=== PATIENT | female | born 1940 | race Caucasian/White ===

== ENCOUNTER 2018-07-18 05:33 | Inpatient (IN) | payer MEDICARE, BC, SELFPAY ==
[2018-07-18] VITALS (25 sets, daily range): BP systolic 104–159; BP diastolic 51–109; PULSE 96–193; RESP 16–30; TEMP 35.8–37.8; O2SAT 71–98; BMI 28.3; BMI 33.2
--- NOTE | 2018-07-18 05:39 | ED.RN ---
DR GLEASON TO THE ROOM. PT PLACED ON NRB. CONTINUES TO BLEED.
[2018-07-18 06:08] LABS: Absolute Lymphocyte Count 2.31 X10^3/ul (0.83-4.51); Absolute Neutrophil Count 7.9 X10^3/uL (2.0-7.7); Basophil# 0.01 X10^3/uL; Basophil% 0.1 % (0-1); Eosinophil# 0.09 X10^3/uL; Eosinophils% 0.8 % (0-5); Hematocrit 35.6 % (37-47); Hemoglobin 11.7 g/dl (12.0-15.0); Lymphocyte # 2.31 X10^3/ul (4.0); Lymphocyte % 20.8 % (19-41); Mean Corp Hgb Conc 32.9 g/gl (32-36); Mean Corpuscular Hgb 29.8 pg (27.0-32.0); Mean Corpuscular Volume 90.8 fL (81-99); Mean Platelet Vol. 11.2 fl (6.2-12.0); Monocyte# 0.73 X10^3/uL; Monocyte% 6.6 % (0-10); Neutrophil # 7.93 X10^3/uL (2.7-7.7); Neutrophil % 71.6 % (47-70); Platelet Count 190 K/mm3 (150-450); RBC Distribution Width CV 13.8 % (11.6-14.6); RBC Distribution Width SD 45.6 fl (35.1-43.9); Red Blood Count 3.92 M/mm3 (4.2-5.4); White Blood Count 11.1 K/mm3 (4.4-11.0)
--- NOTE | 2018-07-18 06:08 | ED.RN ---
RESPIRATORY THERAPY IN THE ROOM. PULSE OX 91
--- NOTE | 2018-07-18 06:08 | ED.RN ---
PT ON 50% 12L O2 VIA FACE TENT
[2018-07-18 06:11] LABS: POSITIVE COUNT NO; POSITIVE DIFFERENTIAL NO; POSITIVE MORPHOLOGY NO
[2018-07-18 06:18] LABS: International Normalized Ratio 1.2; Prothrombin Time (Protime)PT. 15.4 SECONDS (11.7-14.9)
--- NOTE | 2018-07-18 06:21 | ED.RN ---
PT SUCTIONED NEEDED. PT SPITTING OUT BLOOD CLOTS. CONTINUES TO BLEED. DR GLEASON PLACED POSTERIOR RAPID RHINO IN RIGHT NARES. PT TOLERATED WELL. PULSE OX RANGING FROM 73-91%. CONTINUE TO SUCTION NEEDED. BLEEDING HAS SLOWED. PT REPORTS IMPROVEMENT. WILL CONTINUE TO MONITOR.
[2018-07-18 06:26] LABS: Anion Gap 11 (5-15); BUN 29 mg/dL (7-18); Calcium,Total 8.5 mg/dL (8.5-10.1); Chloride 106 mmol/L (98-107); Creatinine, Serum 1.21 mg/dL (0.55-1.02); EST Glomerular Filtration Rate 46 mL/min (>60); Est Glom Filt Rate - Afr Amer 55 mL/min (>60); Estimated Creatinine Clearance 33.09 ml/min; Glucose 151 mg/dL (74-106); Potassium 3.2 mmol/L (3.5-5.1); Sodium Level 144 mmol/L (136-145)
--- NOTE | 2018-07-18 07:09 | ED.VISSUMM ---
- ER Visit Summary Date of Service: 07/18/18 Chief Complaint: Nosebleed History of Present Illness: The patient is a 77 F presenting with nosebleed. This started 2 hours prior to arrival. Patient had severe bleeding from both sides of her nose. Her family states she passed out at home. She is on Eliquis for history of A. fib. On arrival she is bleeding diffusely and hypoxic. Physical Examination: Blood pressure 144/97, temperature 96, heart rate 109, respiratory rate 22. Pulse ox initially in the 70s on room air, 95% on 12 L Alert moderate distress HEENT exam: pale conjunctivae, blood bilateral nares, and posterior pharynx. Neck is supple. Lungs are clear and equal bilaterally. Heart is irregularly irregular Abdomen is soft nontender nondistended. Extremities are unremarkable. Skin is warm and dry. No focal neurologic deficit. Remainder of exam is unremarkable. Emergency Department Course and Treatment: Patient was put on nonrebreather mask. Direct pressure was applied to her nose. Right-sided posterior Rhino Rocket was placed. She was put on a 50% face tent. The bleeding is controlled. Chest x-ray was obtained which showed no acute process. CBC shows white count 11.1, hemoglobin 11.7. Chemistries show potassium 3.2. INR 1.2. Patient is hemodynamically stable. Discussed with the hospitalist for admission. Disposition: Admission Impression: Posterior epistaxis, syncope This note was generated with [employer] dictation software. It may contain incorrect words, spelling, and punctuation that were not noted in review of the chart prior to signing ED Disposition - Plan for ED Patient: Chief Complaint: Nosebleed Referrals: [facility] Doctor,Out of [Primary Care Provider] -
--- NOTE | 2018-07-18 07:47 | PCM.HP.STD ---
Problem List (1) Epistaxis Status: Acute (2) Acute respiratory failure with hypoxia Status: Acute (3) Aspiration pneumonia Status: Acute History of Present Illness Date of Admission: 07/18/18 Chief Complaint: epistaxis The patient is a 77 year old F who was in her normal state of health today up until 3:45 AM patient developed archie epistaxis. Patient was coughing up blood but blood was also running in inferiorly through her nares. Patient presented to the emergency room and they eventually got the bleed tamponaded with a Rhino Rocket. Patient denies any antecedent trauma or ear of her nose preceding this. Patient has never had a significant epistaxis like this before. Patient also presented hypoxic with pulse ox of 71% on room air. Patient was put on a nasal tent mask and is currently 97%. [] Past Medical History Medical History: Medical History (Last Updated 07/18/18 @ 07:50 by Bob Suresh DO) Atrial fibrillation I48.91 Dementia F03.90 Allergies No Known Allergies Allergy (Verified 07/18/18 06:06) Home Medications: Ambulatory Orders Medication Instructions Recorded Apixaban [Eliquis] 5 mg PO BID 07/18/18 Chlorthalidone 25 mg PO DAILY 07/18/18 Donepezil HCl [Aricept] 5 mg PO QHS 07/18/18 Metoprolol(XL)Succ [Toprol Xl 25 mg PO DAILY 07/18/18 (Beta Ronni)] Lives: Spouse/ Significant Other Smoking Status: Never smoker Tobacco Use: Non-smoker Alcohol: Occasional Drugs: None - *Family History Maternal History Items: - - No heart disease Review of Systems Constitutional: Denies: Anorexia, Chills, Fever Eyes: Denies: Blurred vision, Double vision HEENT: Reports: Nasal bleeding. Denies: Difficulty Hearing Cardiovascular: Denies: Chest Pain, Palpitations Respiratory: Reports: Hemoptysis, Shortness of breath upon exertion. Denies: Cough, Shortness of breath at rest, Sputum production Gastrointestinal: Denies: Abdominal Pain, Nausea, Vomiting Genitourinary: Denies: Dysuria, Hematuria Musculoskeletal: Denies: Joint Pain, Joint Tenderness Skin: Denies: Rash, Wounds Neurological: Denies: Numbness, Tingling, Focal weakness Hematologic/ Lymphatic: Denies: Easy Bruising, Easy Bleeding, Hx of blood clot Comment: All review of systems are negative except as mentioned in the history of present illness and the other review of systems. VTE Information - Inpt Only VTE Present on Admission: No VTE Mechan Device Prophylaxis: SCD's VTE Pharm Prophylaxis ordered?: No Reason prophylaxis not ordered:: Medical Contraindication Patient Problems: Active and Suspected Problems (Last Updated 07/18/18 @ 07:50 by Bob Suresh DO) Epistaxis (Acute) Acute respiratory failure with hypoxia (Acute) Aspiration pneumonia (Acute) Objective: Patient has a nasal contents. The patient is a nasal packing in her right nares. - Physical Exam General: Alert, Cooperative, No apparent distress HEENT: Atraumatic, Normocephalic Neck: No Nodes, Thyroid Normal Size and Texture Lungs: Normal air movement, - - Right lower lobe crackles Cardiovascular: Regular rate, Regular Rhythm, Normal S1, Normal S2, No murmurs Abdomen: Bowel Sounds Present, Soft, Non Tender, Non-Distended, No Hepato-splenomegaly Extremities: No edema, No Calf Tenderness Skin: No rashes, No breakdown Musculoskeletal: No Tenderness to Palpation of Joints or Extremities, No Muscle Wasting Lymphatic: No Cervical, Supraclavicular, or Inguinal Adenopathy, Cervical Adenopathy Neurological: Sensory exam intact to light touch and pain, Coordination normal Psych/Mental Status: Normal Affect, Appropriate Vital Signs Temp Pulse Resp BP Pulse Ox 35.8 C L 102 H 26 H 118/86 H 98 07/18/18 05:34 07/18/18 07:27 07/18/18 07:27 07/18/18 07:27 07/18/18 07:27 Oxygen Flow Rate (L/min) 12 Oxygen Delivery Method Room Air Weight: 74.843 kg Body Mass Index (BMI) 28.3 Laboratory Tests Past 24 Hrs 07/18/18 07/18/18 07/18/18 05:55 05:55 05:55 WBC 11.1 H RBC 3.92 L Hgb 11.7 L Hct 35.6 L MCV 90.8 MCH 29.8 MCHC 32.9 RDW 13.8 RDW Differential 45.6 H Plt Count 190 MPV 11.2 Immature Gran % (Auto) 0.100 Neut % (Auto) 71.6 H Lymph % (Auto) 20.8 [place] % (Auto) 6.6 Eos % (Auto) 0.8 Baso % (Auto) 0.1 Absolute Neuts (auto) 7.9 H Absolute Lymphs (auto) 2.31 Total Counted Not Reportable PT 15.4 H INR 1.2 APTT 29.0 Sodium 144 Potassium 3.2 L Chloride 106 Carbon Dioxide 27.0 Anion Gap 11 BUN 29 H Creatinine 1.21 H Estim Creat Clear Calc 33.09 Est GFR (MDRD) Af Amer 55 L Est GFR (MDRD) Non-Af 46 L BUN/Creatinine Ratio 24.0 H Glucose 151 H Calcium 8.5 Clinical Impression(s) from Imaging Studies Chest X-Ray 07/18/18 05:51 IMPRESSION: Component of COPD. No pulmonary edema, congestive heart failure or confluent pneumonia. Other nonacute findings as outlined above. Electronically Signed: Yoselyn Horton MD at 6:44 EDT , Service support , Assessment/Plan All Active Problems (Last Updated 07/18/18 @ 07:50 by Bob Suresh DO) Epistaxis (Acute) Acute respiratory failure with hypoxia (Acute) Aspiration pneumonia (Acute) 1. 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 Patient has been on Eliquis for about a urinalysis not medication. Patient denies any recent trauma. Currently tamponaded with a Rhino Rocket in the right nares Plan is to keep that Rhino Rocket in remove on the . If no further bleeding then then the Rhino Rocket can be removed and Eliquis could be restarted in about a week's time. Given the amount of suspected blood loss patient had will follow up her hemoglobin this afternoon. 2. Acute hypoxic respiratory failure Secondary to the epistaxis but also aspiration pneumonia Wean oxygen as tolerated keep sats greater than 90% Pulmonary toilet 3. Aspiration pneumonia Secondary to epistaxis Given what appears to be on a chest x-ray to be aspiration pneumonia, I do not feel that it is actually heart failure, patient will be put on empiric Unasyn Pulmonary toilet 4. Atrial fibrillation Eliquis will be held as above Continue with metoprolol 5. DVT prophylaxis with SCDs. Chemical prophylaxis is contraindicated in light of the acute hemorrhage. 6. Advanced care planning: Discussed with the patient and the . Patient was rather noncommittal in regards to his care planning, therefore she is full CODE STATUS. I did encourage she and her to discuss these issues further. Code Visit Inpatient E&M: 64001 Init Hosp L3
[2018-07-18] MEDS: Metoprolol(XL)Succ 25 MG Tablet PO (10:30)
[2018-07-18] MEDS: Chlorthalidone 50 MG Tablet 25 MG PO (10:31)
[2018-07-18] MEDS: Ipratropium/Albuterol Sulfate 3 ML AMPUL.NEB INHALATION ×3 (11:28→19:43)
[2018-07-18 13:26] LABS: Hematocrit 32.5 % (37-47); Mean Corp Hgb Conc 33.8 g/gl (32-36); Mean Corpuscular Hgb 30.6 pg (27.0-32.0); Mean Corpuscular Volume 90.3 fL (81-99); Mean Platelet Vol. 11.2 fl (6.2-12.0); Platelet Count 160 K/mm3 (150-450); RBC Distribution Width CV 13.7 % (11.6-14.6); RBC Distribution Width SD 43.9 fl (35.1-43.9); White Blood Count 10.2 K/mm3 (4.4-11.0)
[2018-07-18 13:27] LABS: Scan Indicated on CBC? Y/N NO
[2018-07-18] MEDS: 0.9% Normal Saline 1,000 ML 150 ML IV (14:32)
[2018-07-18] MEDS: 0.9% NaCl Peripheral Flush Adult/Peds IV ×3 (14:32→23:53)
--- NOTE | 2018-07-18 15:52 | CASEMGMT ---
CM INITIAL ASSESSMENT: Home: Patient states she lives in a two-story home with her . The home does have first floor setup. She states there are easy steps in the home, with railing. HHS/Aides: Denies current or past use. Patient states she does not drive. Her takes her to her appointments. DME: Patient states she does not use DME, but does have a walker and can available. She has grab bars in the shower. Home Oxygen: Denies Pharmacy: [facility] Advance Directives: Yes, patient states her daughter, Luanne Power, is medical power of action finisher. Contact: . PCP: Yaya Cat ([facility] Plan: Home CM will continue to follow for safe and effective discharge planning.
[2018-07-18 18:43] LABS: Absolute Lymphocyte Count 0.85 X10^3/ul (0.83-4.51); Absolute Neutrophil Count 6.6 X10^3/uL (2.0-7.7); Hematocrit 28.9 % (37-47); Hemoglobin 9.7 g/dl (12.0-15.0); Lymphocyte # 0.85 X10^3/ul (4.0); Lymphocyte % 10.7 % (19-41); Mean Corp Hgb Conc 33.6 g/gl (32-36); Mean Corpuscular Hgb 30.3 pg (27.0-32.0); Mean Corpuscular Volume 90.3 fL (81-99); Mean Platelet Vol. 11.6 fl (6.2-12.0); Monocyte# 0.42 X10^3/uL; Monocyte% 5.3 % (0-10); Neutrophil # 6.64 X10^3/uL (2.7-7.7); Neutrophil % 83.7 % (47-70); POSITIVE COUNT NO; POSITIVE DIFFERENTIAL NO; POSITIVE MORPHOLOGY NO; Platelet Count 148 K/mm3 (150-450); RBC Distribution Width CV 13.7 % (11.6-14.6); White Blood Count 7.9 K/mm3 (4.4-11.0)
[2018-07-18] MEDS: Donepezil HCl 5 MG Tablet PO (21:08)
--- NOTE | 2018-07-18 21:35 | EKG12_ITS ---
Test Reason : TACHYCARDIA Blood Pressure : / mmHG Vent. Rate : 120 BPM Atrial Rate : 107 BPM P-R Int : 000 ms QRS Dur : 082 ms QT Int : 292 ms P-R-T Axes : 000 -16 -75 degrees QTc Int : 412 ms Atrial fibrillation with rapid ventricular response Nonspecific ST and T wave abnormality Abnormal ECG No previous ECGs available Confirmed by PARISA EDEN, OZZY ([id number]), assistant editor VISHNU ELDRIGDE ([id number]) on 07/22/2018 2:00:42 PM Referred By: ILDA Confirmed By:OZZY MCCAULEY MD
[2018-07-18 23:10] LABS: Magnesium 1.8 mg/dL (1.6-2.6)
[2018-07-18] MEDS: dilTIAZem 25 MG/5 ML Vial 15 MG IV BOLUS (23:52)
[2018-07-18] MEDS: Magnesium Sulfate 1 GM in 0.9% Normal Saline 100 ML IV (23:52)
[2018-07-19] VITALS (23 sets, daily range): BP systolic 101–137; BP diastolic 58–84; PULSE 64–139; RESP 16–23; TEMP 36.5–36.7; O2SAT 90–97
[2018-07-19 07:20] LABS: International Normalized Ratio 1.1; Prothrombin Time (Protime)PT. 14.3 SECONDS (11.7-14.9)
[2018-07-19] MEDS: Ipratropium/Albuterol Sulfate 3 ML AMPUL.NEB INHALATION (07:31)
[2018-07-19 07:47] LABS: Anion Gap 9 (5-15); BUN 25 mg/dL (7-18); BUN/Creat Ratio 25.3 RATIO (10-20); Calcium,Total 8.7 mg/dL (8.5-10.1); Chloride 111 mmol/L (98-107); Creatinine, Serum 0.99 mg/dL (0.55-1.02); EST Glomerular Filtration Rate 58 mL/min (>60); Est Glom Filt Rate - Afr Amer 70 mL/min (>60); Estimated Creatinine Clearance 33.64 ml/min; Glucose 101 mg/dL (74-106); Sodium Level 146 mmol/L (136-145)
[2018-07-19] MEDS: Metoprolol(XL)Succ 25 MG Tablet PO (07:53)
[2018-07-19 07:59] LABS: Hematocrit 29.1 % (37-47); Hemoglobin 9.9 g/dl (12.0-15.0); Mean Corpuscular Hgb 30.7 pg (27.0-32.0); Mean Corpuscular Volume 90.1 fL (81-99); Mean Platelet Vol. 11.6 fl (6.2-12.0); Platelet Count 139 K/mm3 (150-450); RBC Distribution Width CV 14.1 % (11.6-14.6); RBC Distribution Width SD 45.2 fl (35.1-43.9); Red Blood Count 3.23 M/mm3 (4.2-5.4); White Blood Count 8.3 K/mm3 (4.4-11.0)
[2018-07-19 08:14] LABS: Scan Indicated on CBC? Y/N NO
--- NOTE | 2018-07-19 10:43 | PCM.PN.HOSP ---
Patient Problems: Active and Suspected Problems (Last Updated 07/18/18 @ 07:50 by Bob Suresh DO) Epistaxis (Acute) Acute respiratory failure with hypoxia (Acute) Aspiration pneumonia (Acute) Subjective: Having increased HR at times. No chest pain. No shortness of breath. Had melena yesterday. Objective: right nares Rhino rocket removed. No active bleeding noted immediately after removal. Vitals/I&O's: Vital Signs Temp Pulse Resp BP Pulse Ox 36.7 C 116 H 16 134/72 H 97 07/19/18 09:00 07/19/18 09:00 07/19/18 09:00 07/19/18 09:00 07/19/18 09:00 Oxygen Flow Rate (L/min) 2 Oxygen Delivery Method Room Air Weight: 77.1 kg Body Mass Index (BMI) 33.2 Intake and Output for Last 24 Hours 07/17/18 07/18/18 07/19/18 23:59 23:59 23:59 Intake Total 1311 / 1311 588 / 588 Output Total 350 / 350 250 / 250 Balance 961 / 961 338 / 338 General: Alert, No apparent distress HEENT: Atraumatic, Normocephalic Oral: Moist Mucosa, No Gingival or Mucosal Lesions/ Ulcerations Neck: No Nodes, Thyroid Normal Size and Texture Lungs: Normal air movement, - - crackles RLL Cardiovascular: Irregular Rate, Tachycardic Abdomen: Bowel Sounds Present, Soft, Non Tender, Non-Distended, No Hepato-splenomegaly Extremities: No edema, No Calf Tenderness Skin: No rashes, No breakdown Musculoskeletal: No Tenderness to Palpation of Joints or Extremities, No Muscle Wasting Lymphatic: No Cervical, Supraclavicular, or Inguinal Adenopathy, Cervical Adenopathy Neurological: Neuro grossly intact, Muscle tone normal, Sensory exam intact to light touch and pain Psych/Mental Status: Normal Affect, Appropriate Laboratory Results 07/18/18 13:05: WBC 10.2, RBC 3.60 L, Hgb 11.0 L, Hct 32.5 L, MCV 90.3, MCH 30.6, MCHC 33.8, RDW 13.7, RDW Differential 43.9, Plt Count 160, MPV 11.2 07/18/18 18:28: WBC 7.9, RBC 3.20 L, Hgb 9.7 L, Hct 28.9 L, MCV 90.3, MCH 30.3, MCHC 33.6, RDW 13.7, RDW Differential 44.0 H, Plt Count 148 L, MPV 11.6, Immature Gran % (Auto) 0.300, Neut % (Auto) 83.7 H, Lymph % (Auto) 10.7 L, [place] % (Auto) 5.3, Eos % (Auto) 0.0, Baso % (Auto) 0.0, Absolute Neuts (auto) 6.6, Absolute Lymphs (auto) 0.85, Total Counted Not Reportable 07/18/18 22:17: Magnesium 1.8 07/19/18 06:52: PT 14.3, INR 1.1 07/19/18 06:52: Sodium 146 H, Potassium 5.0, Chloride 111 H, Carbon Dioxide 26.0, Anion Gap 9, BUN 25 H, Creatinine 0.99, Estim Creat Clear Calc 33.64, Est GFR (MDRD) Af Amer 70, Est GFR (MDRD) Non-Af 58 L, BUN/Creatinine Ratio 25.3 H, Glucose 101, Calcium 8.7 07/19/18 06:52: WBC 8.3, RBC 3.23 L, Hgb 9.9 L, Hct 29.1 L, MCV 90.1, MCH 30.7, MCHC 34.0, RDW 14.1, RDW Differential 45.2 H, Plt Count 139 L, MPV 11.6 Current Medications Albuterol Sulfate (Ventolin Aerosols) 2.5 mg INHALATION Q2H PRN PRN PRN Reason: SHORTNESS OF BREATH Albuterol/Ipratropium (Duoneb) 3 ml INHALATION Q4HWA.RT [facility] Last Admin: 07/19/18 07:31 Dose: 3 ml Donepezil HCl (Aricept) 5 mg PO QHS [facility] Last Admin: 07/18/18 21:08 Dose: 5 mg Ampicillin Sodium/Sulbactam (Sodium 3 gm/ Sodium Chloride) 112 mls @ 150 mls/hr IV Q8 [facility] Last Admin: 07/19/18 05:06 Dose: 150 mls/hr Labetalol HCl (Trandate) 10 mg IV Q4H PRN PRN PRN Reason: Heart Rate Last Admin: 07/18/18 22:20 Dose: 10 mg Magnesium Hydroxide (Milk Of Magnesia) 30 ml PO DAILY PRN PRN Reason: Constipation Metoprolol Succinate (Toprol Xl (Beta Ronni)) 25 mg PO DAILY [facility] Last Admin: 07/19/18 07:53 Dose: 25 mg Nutritional Formula (Lactose Free) (Ensure Enlive) 120 ml PO 4X/DAY [facility] Last Admin: 07/19/18 09:45 Dose: 120 ml Sodium Chloride () 5 - 30 ml IV UD PRN PRN Reason: SALINE FLUSH Last Admin: 07/18/18 23:53 Dose: 10 ml Medical Necessity - Tobacco Use Smoking Status: Never smoker Tobacco Use: Non-smoker Assessment/Plan All Active Problems (Last Updated 07/18/18 @ 07:50 by Bob Suresh DO) Epistaxis (Acute) Acute respiratory failure with hypoxia (Acute) Aspiration pneumonia (Acute) 1. 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 Patient has been on Eliquis for about a urinalysis not medication. Patient denies any recent trauma. Improved rhino rocket removed today. 2. Acute hypoxic respiratory failure resolved Secondary to the epistaxis but also aspiration pneumonia Pulmonary toilet 3. Aspiration pneumonia Secondary to epistaxis Given what appears to be on a chest x-ray to be aspiration pneumonia, I do not feel that it is actually heart failure, patient will be put on empiric Unasyn, transition to Augmentin on DC and treat through 07/24 Pulmonary toilet 4. Acute blood loss anemia Hg 11.7 to 9.9 stable after initial drop no need for transfusion secondary to #1 5. Atrial fibrillation w RVR Eliquis will be held as above, resume in 1 week, if no further bleeding. Change metoprolol succinate 25 to tartrate 50 BID check Echo check records from [place] expressing interest in following up with cardiology in [place] as outpt rather than [place] RVR at least partially attributable to anemia 6. Melena 2/2 ingested blood no further work up unless persists well beyond the epistaxis 7. DVT prophylaxis with SCDs. Chemical prophylaxis is contraindicated in light of the acute hemorrhage. 8. Disposition: watch patient overnight given labile HR and observe for recurrent epistaxis. DW patient's at bedside. Code Visit Inpatient E&M: 26623 Subs Hosp L3
--- NOTE | 2018-07-19 10:52 | ECHOD_ITS ---
Reason For Study: AFIB Procedure This was a 2D Doppler, Color Flow transthoracic echocardiogram. Exam performed portable in patient room. Left Ventricle Normal LV size. Left ventricular systolic function is normal. The estimated ejection fraction is 55 %. Unable to assess diastolic dysfunction due to arrhythmia. No regional wall motion abnormalities noted. Right Ventricle Normal RV size. Normal systolic function. Atria The left atrium is mildly enlarged. The right atrium is mildly enlarged. Mitral Valve Normal mitral valve. Tricuspid Valve Normal tricuspid valve. Moderate (2+) tricuspid valve insufficiency. Pulmonary artery systolic pressure is 62 mmHg. Moderate pulmonary hypertension. Aortic Valve Normal aortic valve. Pulmonic Valve Normal pulmonic valve. Great Vessels Normal aortic root. The pulmonary artery is normal size. Normal inferior vena cava. Pericardium/Pleural No pericardial effusion. MMode/2D Measurements & Calculations LVIDd: 4.1 cm IVSd: 0.95 cm Ao root diam: 2.7 cm LVIDs: 2.8 cm LVPWd: 0.92 cm LA dimension: 4.1 cm RVDd: 4.4 cm FS: 31.7 % LAV(MOD-bp): 64.1 ml LA A4 area: 22.6 cm2 RA A4 area: 22.1 cm2 LAV(MOD-bp) Indexed: 36.9 ml/m2 LAV(MOD-sp2): 53.2 ml LAV(MOD-sp4): 69.5 ml Time Measurements MV dec time: 0.13 sec Doppler Measurements & Calculations MV E max misbah: 117.1 cm/sec Ao V2 max: 142.2 cm/sec LV V1 max: 96.3 cm/sec Ao max P.1 mmHg LV V1 max P.7 mmHg TR max misbah: 382.7 cm/sec TR max P.8 mmHg Interpretation Summary Normal LV size. Left ventricular systolic function is normal. The estimated ejection fraction is 55 %. Unable to assess diastolic dysfunction due to arrhythmia. The left atrium is mildly enlarged. The right atrium is mildly enlarged. Moderate pulmonary hypertension. Ordering Physician: Bob Suresh Referring Physician: OUT OF TOWN Performed By: Danica Michael, JEAN-PIERRE, RVT
[2018-07-19] MEDS: Metoprolol Tartrate 25 MG Tablet PO (12:17)
[2018-07-19] MEDS: 0.9% NaCl Peripheral Flush Adult/Peds IV (14:09)
[2018-07-19] MEDS: Donepezil HCl 5 MG Tablet PO (21:20)
[2018-07-19] MEDS: Metoprolol Tartrate 50 MG Tablet PO (21:24)
[2018-07-20] VITALS (10 sets, daily range): BP systolic 116–125; BP diastolic 44–73; PULSE 77–124; RESP 18–20; TEMP 36.5–37.1; O2SAT 93–95
[2018-07-20 06:28] LABS: Absolute Neutrophil Count 3.4 X10^3/uL (2.0-7.7); Basophil# 0.01 X10^3/uL; Basophil% 0.2 % (0-1); Eosinophil# 0.04 X10^3/uL; Eosinophils% 0.7 % (0-5); Hematocrit 26.1 % (37-47); Hemoglobin 8.6 g/dl (12.0-15.0); Lymphocyte % 33.3 % (19-41); Mean Corpuscular Volume 90.9 fL (81-99); Mean Platelet Vol. 11.3 fl (6.2-12.0); Monocyte# 0.52 X10^3/uL; Monocyte% 8.7 % (0-10); Neutrophil # 3.43 X10^3/uL (2.7-7.7); Neutrophil % 56.9 % (47-70); Platelet Count 146 K/mm3 (150-450); RBC Distribution Width CV 14.7 % (11.6-14.6); RBC Distribution Width SD 48.8 fl (35.1-43.9); Red Blood Count 2.87 M/mm3 (4.2-5.4)
[2018-07-20 06:31] LABS: POSITIVE COUNT NO; POSITIVE DIFFERENTIAL NO; POSITIVE MORPHOLOGY NO
[2018-07-20 06:37] LABS: Anion Gap 9 (5-15); BUN 24 mg/dL (7-18); BUN/Creat Ratio 25.7 RATIO (10-20); Calcium,Total 8.2 mg/dL (8.5-10.1); Chloride 110 mmol/L (98-107); Creatinine, Serum 0.94 mg/dL (0.55-1.02); EST Glomerular Filtration Rate 62 mL/min (>60); Est Glom Filt Rate - Afr Amer 74 mL/min (>60); Estimated Creatinine Clearance 35.43 ml/min; Glucose 91 mg/dL (74-106); Potassium 4.1 mmol/L (3.5-5.1); Sodium Level 145 mmol/L (136-145)
[2018-07-20] MEDS: Metoprolol Tartrate 50 MG Tablet PO (09:22)
[2018-07-20] MEDS: Ipratropium/Albuterol Sulfate 3 ML AMPUL.NEB INHALATION (11:24)
--- NOTE | 2018-07-20 14:19 | PCM.PN.HOSP ---
Patient Problems: Active and Suspected Problems (Last Updated 07/18/18 @ 07:50 by oBb Suresh DO) Epistaxis (Acute) Acute respiratory failure with hypoxia (Acute) Aspiration pneumonia (Acute) Subjective: Has some hemoptysis but not nearly as much as prior to admission Vitals/I&O's: Vital Signs Temp Pulse Resp BP Pulse Ox 97.7 F L 99 20 H 116/44 L 93 07/20/18 09:15 07/20/18 11:24 07/20/18 11:24 07/20/18 09:15 07/20/18 11:24 Oxygen Flow Rate (L/min) 2 Oxygen Delivery Method Room Air Weight: 169 lb 15.622 oz Body Mass Index (BMI) 33.2 Intake and Output for Last 24 Hours 07/18/18 07/19/18 07/20/18 23:59 23:59 23:59 Intake Total 1311 / 1311 948 / 948 801.8 / 801.8 Output Total 350 / 350 250 / 250 Balance 961 / 961 698 / 698 801.8 / 801.8 General: Alert, Oriented x3, No apparent distress HEENT: Atraumatic, EOMI, Normocephalic Oral: Moist Mucosa Neck: Supple, No JVD Lungs: Clear to auscultation, Normal air movement, No rhonchi, No wheeze, No rales Cardiovascular: Regular rate, Regular Rhythm, Normal S1, Normal S2 Abdomen: Soft, Non Tender, Non-Distended Extremities: No edema, Capillary Refill Less than 3 Seconds Skin: No rashes, No breakdown Neurological: Neuro grossly intact, Sensory exam intact to light touch and pain Psych/Mental Status: Normal Affect, Appropriate Laboratory Results 07/20/18 05:55: WBC 6.0, RBC 2.87 L, Hgb 8.6 L, Hct 26.1 L, MCV 90.9, MCH 30.0, MCHC 33.0, RDW 14.7 H, RDW Differential 48.8 H, Plt Count 146 L, MPV 11.3, Immature Gran % (Auto) 0.200, Neut % (Auto) 56.9, Lymph % (Auto) 33.3, [place] % (Auto) 8.7, Eos % (Auto) 0.7, Baso % (Auto) 0.2, Absolute Neuts (auto) 3.4, Absolute Lymphs (auto) 2.00, Total Counted Not Reportable 07/20/18 05:55: Sodium 145, Potassium 4.1, Chloride 110 H, Carbon Dioxide 26.0, Anion Gap 9, BUN 24 H, Creatinine 0.94, Estim Creat Clear Calc 35.43, Est GFR (MDRD) Af Amer 74, Est GFR (MDRD) Non-Af 62, BUN/Creatinine Ratio 25.7 H, Glucose 91, Calcium 8.2 L Current Medications Albuterol Sulfate (Ventolin Aerosols) 2.5 mg INHALATION Q2H PRN PRN PRN Reason: SHORTNESS OF BREATH Albuterol/Ipratropium (Duoneb) 3 ml INHALATION Q4HWA.RT [facility] Last Admin: 07/20/18 11:24 Dose: 3 ml Donepezil HCl (Aricept) 5 mg PO QHS [facility] Last Admin: 07/19/18 21:20 Dose: 5 mg Ampicillin Sodium/Sulbactam (Sodium 3 gm/ Sodium Chloride) 112 mls @ 150 mls/hr IV Q8 [facility] Last Admin: 07/20/18 05:03 Dose: 150 mls/hr Labetalol HCl (Trandate) 10 mg IV Q4H PRN PRN PRN Reason: Heart Rate Last Admin: 07/18/18 22:20 Dose: 10 mg Magnesium Hydroxide (Milk Of Magnesia) 30 ml PO DAILY PRN PRN Reason: Constipation Metoprolol Tartrate (Lopressor (Beta Ronni)) 50 mg PO BID [facility] Last Admin: 07/20/18 09:22 Dose: 50 mg Nutritional Formula (Lactose Free) (Ensure Enlive) 120 ml PO 4X/DAY [facility] Last Admin: 07/20/18 09:22 Dose: 120 ml Sodium Chloride () 5 - 30 ml IV UD PRN PRN Reason: SALINE FLUSH Last Admin: 07/19/18 14:09 Dose: 10 ml Medical Necessity - Tobacco Use Smoking Status: Never smoker Tobacco Use: Non-smoker Assessment/Plan All Active Problems (Last Updated 07/18/18 @ 07:50 by Bob Suresh DO) Epistaxis (Acute) Acute respiratory failure with hypoxia (Acute) Aspiration pneumonia (Acute) 1. Epistaxis/Acute hypoxic respiratory failure d/t aspiration pneumonia from the epistaxis/Acute blood loss anemia/Melena - Currently improving, the nasal rocket is out and she only had a fan sized hemoptysis - C/w unasyn for now though, resp status is back to baseline and she has no leukocytosis - Daughter was concerned for some weakness, so PT/OT for evaluation to decide on dispo - Will monitor H/H in the am if she is still here, possible DC depending on PT/OT and family discussion with close PCP f/u abd outpatient CBC - Hold eliquis until bleeding is resolved - May need outpatient ENT eval 2. A-fib with RVR - She is now rate controlled - Switched from succinate to tartrate - Echo is pending - Hold eliquis on DC DVT: SCDs Diet: Cardiac Code Visit Inpatient E&M: 19762 Subs Hosp L2
--- NOTE | 2018-07-20 14:27 | PN_ITS ---
Patient Problems: Active and Suspected Problems (Last Updated 07/18/18 @ 07:50 by Bob Suresh DO ) Epistaxis (Acute) Acute respiratory failure with hypoxia (Acute) Aspiration pneumonia (Acute) Subjective: Has some hemoptysis but not nearly as much as prior to admission Vitals/I&O's: Vital Signs Temp Pulse Resp BP Pulse Ox 97.7 F L 99 20 H 116/44 L 93 07/20/18 09:15 07/20/18 11:24 07/20/18 11:24 07/20/18 09:15 07/20/18 11:24 Oxygen Flow Rate (L/min) 2 Oxygen Delivery Method Room Air Weight: 169 lb 15.622 oz Body Mass Index (BMI) 33.2 Intake and Output for Last 24 Hours 07/18/18 07/19/18 07/20/18 23:59 23:59 23:59 Intake Total 1311 / 1311 948 / 948 801.8 / 801.8 Output Total 350 / 350 250 / 250 Balance 961 / 961 698 / 698 801.8 / 801.8 General: Alert, Oriented x3, No apparent distress HEENT: Atraumatic, EOMI, Normocephalic Oral: Moist Mucosa Neck: Supple, No JVD Lungs: Clear to auscultation, Normal air movement, No rhonchi, No wheeze, No rales Cardiovascular: Regular rate, Regular Rhythm, Normal S1, Normal S2 Abdomen: Soft, Non Tender, Non-Distended Extremities: No edema, Capillary Refill Less than 3 Seconds Skin: No rashes, No breakdown Neurological: Neuro grossly intact, Sensory exam intact to light touch and pain Psych/Mental Status: Normal Affect, Appropriate Laboratory Results 07/20/18 05:55: WBC 6.0, RBC 2.87 L, Hgb 8.6 L, Hct 26.1 L, MCV 90.9, MCH 30.0, MCHC 33.0, RDW 14.7 H, RDW Differential 48.8 H, Plt Count 146 L, MPV 11.3, Immature Gran % (Auto) 0.200, Neut % (Auto) 56.9, Lymph % (Auto) 33.3, [place] % ( Auto) 8.7, Eos % (Auto) 0.7, Baso % (Auto) 0.2, Absolute Neuts (auto) 3.4, Absolute Lymphs (auto) 2.00, Total Counted Not Reportable 07/20/18 05:55: Sodium 145, Potassium 4.1, Chloride 110 H, Carbon Dioxide 26.0, Anion Gap 9, BUN 24 H, Creatinine 0.94, Estim Creat Clear Calc 35.43, Est GFR ( MDRD) Af Amer 74, Est GFR (MDRD) Non-Af 62, BUN/Creatinine Ratio 25.7 H, Glucose 91, Calcium 8.2 L Current Medications Albuterol Sulfate (Ventolin Aerosols) 2.5 mg INHALATION Q2H PRN PRN PRN Reason: SHORTNESS OF BREATH Albuterol/Ipratropium (Duoneb) 3 ml INHALATION Q4HWA.RT [facility] Last Admin: 07/20/18 11:24 Dose: 3 ml Donepezil HCl (Aricept) 5 mg PO QHS [facility] Last Admin: 07/19/18 21:20 Dose: 5 mg Ampicillin Sodium/Sulbactam (Sodium 3 gm/ Sodium Chloride) 112 mls @ 150 mls/ hr IV Q8 [facility] Last Admin: 07/20/18 05:03 Dose: 150 mls/hr Labetalol HCl (Trandate) 10 mg IV Q4H PRN PRN PRN Reason: Heart Rate Last Admin: 07/18/18 22:20 Dose: 10 mg Magnesium Hydroxide (Milk Of Magnesia) 30 ml PO DAILY PRN PRN Reason: Constipation Metoprolol Tartrate (Lopressor (Beta Ronni)) 50 mg PO BID [facility] Last Admin: 07/20/18 09:22 Dose: 50 mg Nutritional Formula (Lactose Free) (Ensure Enlive) 120 ml PO 4X/DAY [facility] Last Admin: 07/20/18 09:22 Dose: 120 ml Sodium Chloride () 5 - 30 ml IV UD PRN PRN Reason: SALINE FLUSH Last Admin: 07/19/18 14:09 Dose: 10 ml Medical Necessity - Tobacco Use Smoking Status: Never smoker Tobacco Use: Non-smoker Assessment/Plan All Active Problems (Last Updated 07/18/18 @ 07:50 by Bob Suresh DO) Epistaxis (Acute) Acute respiratory failure with hypoxia (Acute) Aspiration pneumonia (Acute) 1. Epistaxis/Acute hypoxic respiratory failure d/t aspiration pneumonia from the epistaxis/Acute blood loss anemia/Melena - Currently improving, the nasal rocket is out and she only had a fan sized hemoptysis - C/w unasyn for now though, resp status is back to baseline and she has no leukocytosis - Daughter was concerned for some weakness, so PT/OT for evaluation to decide on dispo - Will monitor H/H in the am if she is still here, possible DC depending on PT/ OT and family discussion with close PCP f/u abd outpatient CBC - Hold eliquis until bleeding is resolved - May need outpatient ENT eval 2. A-fib with RVR - She is now rate controlled - Switched from succinate to tartrate - Echo is pending - Hold eliquis on DC DVT: SCDs Diet: Cardiac Code Visit Inpatient E&M: 21143 Subs Hosp L2
--- NOTE | 2018-07-20 16:04 | PCM.DC ---
- Discharge Diagnoses Current Active Problems: Current Active and Chronic Problems (Last Updated 07/18/18 @ 07:50 by Bob Suresh DO) Epistaxis (Acute) Acute respiratory failure with hypoxia (Acute) Aspiration pneumonia (Acute) You will use the following diet at home:: Cardiac Your food should be the consistency of: Regular Your liquids should be the consistency of: Regular/Thin Discharge Activity: Return to Normal Activity Call your doctor if you observe: Shortness of breath, Dizziness, Fainting spells, Chest pain, Increased palpitations (irregular heartbeat) Allergies/Adverse Reactions: Allergies No Known Allergies Allergy (Verified 07/18/18 06:06) Medications to take at Discharge Apixaban [Eliquis] 5 mg PO BID 07/18/18 Chlorthalidone 25 mg PO DAILY 07/18/18 Donepezil HCl [Aricept] 5 mg PO QHS 07/18/18 Amoxicillin/Potassium Clav [Augmentin 875-125 Tablet] 1 ea PO BID #9 tab 07/20/18 Metoprolol Tartrate [Lopressor (beta zee)] 50 mg PO BID #30 tab 07/20/18 The following prescriptions were given: Amoxicillin/Potassium Clav [Augmentin 875-125 Tablet] 1 ea PO BID #9 tab Metoprolol Tartrate [Lopressor (beta zee)] 50 mg PO BID #30 tab Primary Care Physician: Norma Schmitt,Out of [Primary Care Provider] - Please follow up with your Primary Care Physician in: in 3-5 days Test Results: Test results from this visit will be discussed in further detail at your follow-up appointment, if applicable. Please Follow Up With: ENT When: in 3-5 days
--- NOTE | 2018-07-20 16:10 | PCM.DC.SUM ---
Discharge Date and Diagnosis - Problem List Patient Problems: Active and Suspected Problems (Last Updated 07/18/18 @ 07:50 by Bob Suresh DO) Epistaxis (Acute) Acute respiratory failure with hypoxia (Acute) Aspiration pneumonia (Acute) Date of Admission: 07/18/18 Date of Discharge: 07/20/18 - Primary Discharge Diagnosis Active and Suspected Problems (Last Updated 07/18/18 @ 07:50 by Bob Suresh DO) Epistaxis (Acute) Acute respiratory failure with hypoxia (Acute) Aspiration pneumonia (Acute) Hospital Course and Treatment Imaging Results: None Consults: None Operations: None Procedures: 2-D Echocardiogram Summary of Care Provided: HPI: The patient is a 77 year old F who was in her normal state of health today up until 3:45 AM patient developed archie epistaxis. Patient was coughing up blood but blood was also running in inferiorly through her nares. Patient presented to the emergency room and they eventually got the bleed tamponaded with a Rhino Rocket. Patient denies any antecedent trauma or ear of her nose preceding this. Patient has never had a significant epistaxis like this before. Patient also presented hypoxic with pulse ox of 71% on room air. Patient was put on a nasal tent mask and is currently 97%. Hospital Course: 1. Epistaxis/Acute hypoxic respiratory failure d/t aspiration pneumonia from the epistaxis/Acute blood loss anemia/Melena - Currently improving, the nasal rocket is out and she only had a fan sized hemoptysis - resp status is back to baseline and she has no leukocytosis - Daughter was concerned for some weakness, so PT/OT for evaluation, she is ok for DC home - Hold eliquis until bleeding is resolved, recheck CBC in 2-3 days as an outpatient - May need outpatient ENT eval - augmentin BID for 4 days 2. A-fib with RVR - She is now rate controlled - Switched from succinate to tartrate 50 mg BID - Echo is pending - Hold eliquis on DC, can resume in 1 weeks depending on eval from ENT Discharge Activity: Return to Normal Activity Call your doctor if you observe: Shortness of breath, Dizziness, Fainting spells, Chest pain, Increased palpitations (irregular heartbeat) Home Medications: Medications to take at Discharge Apixaban [Eliquis] 5 mg PO BID 07/18/18 Chlorthalidone 25 mg PO DAILY 07/18/18 Donepezil HCl [Aricept] 5 mg PO QHS 07/18/18 Amoxicillin/Potassium Clav [Augmentin 875-125 Tablet] 1 ea PO BID #9 tab 07/20/18 Metoprolol Tartrate [Lopressor (beta zee)] 50 mg PO BID #30 tab 07/20/18 Following Prescrptions Were Given to Patient: Amoxicillin/Potassium Clav [Augmentin 875-125 Tablet] 1 ea PO BID #9 tab Metoprolol Tartrate [Lopressor (beta zee)] 50 mg PO BID #30 tab Other Amb Orders: CBC W/Diff, Automated Time Frame: 3 Days, Location: Laboratory Primary Care Physician: Norma Schmitt,Out of [Primary Care Provider] - Please follow up with your Primary Care Physician in: in 3-5 days Please Follow Up With: ENT When: in 3-5 days Disposition: Home Minutes spent on discharge:: 35 Patient Condition:: Good Medical Necessity - Tobacco Use Smoking Status: Never smoker Tobacco Use: Non-smoker Meaningful Use Info Meaningful Use Diagnoses (Choose all that apply): None applicable Code Visit Inpatient E&M: 61041 Disch Hosp
--- NOTE | 2018-07-20 16:15 | DS.PCM_ITS ---
Discharge Date and Diagnosis - Problem List Patient Problems: Active and Suspected Problems (Last Updated 07/18/18 @ 07:50 by Bob Suresh DO ) Epistaxis (Acute) Acute respiratory failure with hypoxia (Acute) Aspiration pneumonia (Acute) Date of Admission: 07/18/18 Date of Discharge: 07/20/18 - Primary Discharge Diagnosis Active and Suspected Problems (Last Updated 07/18/18 @ 07:50 by Bob Suresh DO ) Epistaxis (Acute) Acute respiratory failure with hypoxia (Acute) Aspiration pneumonia (Acute) Hospital Course and Treatment Imaging Results: None Consults: None Operations: None Procedures: 2-D Echocardiogram Summary of Care Provided: HPI: The patient is a 77 year old F who was in her normal state of health today up until 3:45 AM patient developed archie epistaxis. Patient was coughing up blood but blood was also running in inferiorly through her nares. Patient presented to the emergency room and they eventually got the bleed tamponaded with a Rhino Rocket. Patient denies any antecedent trauma or ear of her nose preceding this. Patient has never had a significant epistaxis like this before. Patient also presented hypoxic with pulse ox of 71% on room air. Patient was put on a nasal tent mask and is currently 97%. Hospital Course: 1. Epistaxis/Acute hypoxic respiratory failure d/t aspiration pneumonia from the epistaxis/Acute blood loss anemia/Melena - Currently improving, the nasal rocket is out and she only had a fan sized hemoptysis - resp status is back to baseline and she has no leukocytosis - Daughter was concerned for some weakness, so PT/OT for evaluation, she is ok for DC home - Hold eliquis until bleeding is resolved, recheck CBC in 2-3 days as an outpatient - May need outpatient ENT eval - augmentin BID for 4 days 2. A-fib with RVR - She is now rate controlled - Switched from succinate to tartrate 50 mg BID - Echo is pending - Hold eliquis on DC, can resume in 1 weeks depending on eval from ENT Discharge Activity: Return to Normal Activity Call your doctor if you observe: Shortness of breath, Dizziness, Fainting spells , Chest pain, Increased palpitations (irregular heartbeat) Home Medications: Medications to take at Discharge Apixaban [Eliquis] 5 mg PO BID 07/18/18 Chlorthalidone 25 mg PO DAILY 07/18/18 Donepezil HCl [Aricept] 5 mg PO QHS 07/18/18 Amoxicillin/Potassium Clav [Augmentin 875-125 Tablet] 1 ea PO BID #9 tab Metoprolol Tartrate [Lopressor (beta zee)] 50 mg PO BID #30 tab 07/20/18 Following Prescrptions Were Given to Patient: Amoxicillin/Potassium Clav [Augmentin 875-125 Tablet] 1 ea PO BID #9 tab Metoprolol Tartrate [Lopressor (beta zee)] 50 mg PO BID #30 tab Other Amb Orders: CBC W/Diff, Automated Time Frame: 3 Days, Location: Laboratory Primary Care Physician: Norma Schmitt,Out of [Primary Care Provider] - Please follow up with your Primary Care Physician in: in 3-5 days Please Follow Up With: ENT When: in 3-5 days Disposition: Home Minutes spent on discharge:: 35 Patient Condition:: Good Medical Necessity - Tobacco Use Smoking Status: Never smoker Tobacco Use: Non-smoker Meaningful Use Info Meaningful Use Diagnoses (Choose all that apply): None applicable Code Visit Inpatient E&M: 52315 Disch Hosp
== END 2018-07-20 17:02 | disposition home or self-care (01) | DRG 150 ==
LOC: ED 06:41 → PCU 08:01
PROVIDERS: Internal Medicine; Emergency Provider Emergency Medicine; Visit Provider Family Medicine
DX: R04.0 Epistaxis (principal); J96.01 Acute respiratory failure with hypoxia; J69.0 Pneumonitis due to inhalation of food and vomit; D62 Acute posthemorrhagic anemia; I48.91 Unspecified atrial fibrillation; Z79.02 Long term (current) use of antithrombotics/antiplatelets
CPT/HCPCS: 36415; 71045; 80048; 83735; 85025; 85027; 85610; 85730; 93005; 93306; 94640; 94667; 94668; 97162; 97802; 99285; J7030; J7040; A4216; J0295

== ENCOUNTER → 2018-07-23 10:44 | Outpatient (CLI) | payer MEDICARE, BC, SELFPAY ==
[2018-07-23 11:19] LABS: Absolute Lymphocyte Count 1.05 X10^3/ul (0.83-4.51); Absolute Neutrophil Count 4.9 X10^3/uL (2.0-7.7); Basophil# 0.01 X10^3/uL; Basophil% 0.1 % (0-1); Eosinophil# 0.13 X10^3/uL; Eosinophils% 1.9 % (0-5); Hematocrit 27.7 % (37-47); Hemoglobin 9.1 g/dl (12.0-15.0); Lymphocyte # 1.05 X10^3/ul (4.0); Lymphocyte % 15.6 % (19-41); Mean Corp Hgb Conc 32.9 g/gl (32-36); Mean Corpuscular Hgb 30.3 pg (27.0-32.0); Mean Corpuscular Volume 92.3 fL (81-99); Mean Platelet Vol. 10.7 fl (6.2-12.0); Monocyte# 0.58 X10^3/uL; Monocyte% 8.6 % (0-10); Neutrophil # 4.94 X10^3/uL (2.7-7.7); Neutrophil % 73.8 % (47-70); Platelet Count 212 K/mm3 (150-450); RBC Distribution Width CV 14.6 % (11.6-14.6); RBC Distribution Width SD 47.6 fl (35.1-43.9); White Blood Count 6.7 K/mm3 (4.4-11.0)
[2018-07-23 11:20] LABS: POSITIVE COUNT NO; POSITIVE DIFFERENTIAL NO; POSITIVE MORPHOLOGY NO
== END ==
PROVIDERS: Visit Provider Family Medicine
DX: D64.9 Anemia, unspecified (principal)
CPT/HCPCS: 36415; 85025

== ENCOUNTER 2018-08-02 18:35 | Emergency (ER) | payer MEDICARE, BC, SELFPAY ==
[2018-08-02 18:36] VITALS: BP 136/83; PULSE 80; RESP 18; TEMP 36.8; O2SAT 100; BMI 31.2
[2018-08-02 19:45] VITALS: BP 120/84; PULSE 81; RESP 16; O2SAT 100
--- NOTE | 2018-08-02 21:35 | ED.DCSUM_ITS ---
- ER Visit Summary Date of Service: 08/02/18 Chief Complaint: Epistaxis History of Present Illness: The patient is a 77 F who presents with nosebleed. She was recently admitted for a severe nosebleed. She had syncope and hypoxia at that time. She was hospitalized for 3 days. She just restarted her anticoagulation. She states that today's episode is less severe. Family brought her in because they did not want her to get to that point. It began about 3 hours prior to presentation. She denies chest pain shortness of breath lightheadedness or dizziness. Physical Examination: Afebrile vitals are normal There is some mild epistaxis from the right nare there appears to be some oozing from the left Heart regular rate and rhythm Lungs are clear Abdomen soft Alert Test Results: Not indicated Emergency Department Course and Treatment: An Afrin-soaked cotton ball was placed in both nostril and pressure applied. I then applied thrombin gel bilaterally. Hemostasis was achieved. Patient was ambulated up and down the hallway and had no bleeding. She will be discharged to follow-up as an outpatient. She understands to return for new or worsening symptoms. Treatment Plan: [] Disposition: Discharge Impression: Epistaxis This note was generated with [employer] dictation software. It may contain incorrect words, spelling, and punctuation that were not noted in review of the chart prior to signing ED Disposition - Plan for ED Patient: Chief Complaint: Nosebleed Referrals: [facility] Doctor,Out of [Primary Care Provider] -
[2018-08-02 21:51] VITALS: BP 115/70; PULSE 75; RESP 14; O2SAT 98
[2018-08-02] MEDS: Oxymetazoline 0.05% 1 SPRAY SPRAY.BTL 2 SPRAY NASAL (21:57)
== END 2018-08-02 21:58 | disposition home or self-care (01) ==
LOC: ED 21:08
PROVIDERS: Emergency Provider Emergency Medicine
DX: R04.0 Epistaxis (principal); I48.91 Unspecified atrial fibrillation; Z79.02 Long term (current) use of antithrombotics/antiplatelets; Z79.899 Other long term (current) drug therapy
CPT/HCPCS: 30901; 99282